=== PATIENT | female | born 1960 | race Caucasian/White ===

== ENCOUNTER 2021-09-29 01:20 | Emergency (ER) | payer OTHER ==
[2021-09-29] MEDS ORDERED: ONDANSETRON 4 MG/2 ML VIAL IVP STA (02:30)
[2021-09-29] MEDS ORDERED: SODIUM CHLORIDE 0.9% 50 ML IVPB ONE (02:45)
[2021-09-29] MEDS ORDERED: SOTROVIMAB (EUA) 500 MG in SODIUM CHLORIDE 0.9% 100 ML IVPB ONE (02:45)
--- NOTE | 2021-09-29 03:00 | ED ---
URI HPI - General Chief Complaint: Upper Respiratory Infection Stated Complaint: COVID+, wants antibodies Time Seen by Provider: 09/29/21 02:20 Source: patient, RN notes reviewed Mode of arrival: ambulatory Limitations: no limitations - History of Present Illness Initial Comments: Patient is a 61-year-old female presenting to emergency Department requesting monoclonal antibodies. Patient states he tested positive yesterday for "winded. She's been having fever, body aches, nausea over the past 4 days. She denies any chest pain or shortness of breath. She denies any abdominal pain, she does have some mild intermittent cramping. No diarrhea. Patient was seen and evaluated yesterday at [facility], received some fluids. Patient has no further complaints. Her vitals are stable upon arrival. - Related Data Previous Rx's Medication Instructions Recorded Ondansetron Odt [Zofran Odt] 4 mg PO Q8HR PRN #10 tab 09/29/21 Allergies Allergy/AdvReac Type Severity Reaction Status Date / Time amoxicillin Allergy Rash/Hives Verified 09/29/21 01:33 codeine Allergy Hallucinati Verified 09/29/21 01:33 ons diazepam [From Valium] Allergy Hallucinati Verified 09/29/21 01:33 ons Penicillins Allergy Rash/Hives Verified 09/29/21 01:33 Review of Systems ROS Statement: Those systems with pertinent positive or pertinent negative responses have been documented in the HPI. ROS Other: All systems not noted in ROS Statement are negative. Past Medical History Past Medical History: No Reported History History of Any Multi-Drug Resistant Organisms: None Reported Past Surgical History: No Surgical Hx Reported Past Psychological History: No Psychological Hx Reported Smoking Status: Never smoker Past Alcohol Use History: None Reported Past Drug Use History: None Reported General Exam - General Exam Comments Initial Comments: GENERAL: Patient is well-developed and well-nourished. Patient is nontoxic and in no acute distress. HEAD: Atraumatic, normocephalic. EYES: Pupils equal round and reactive to light, extraocular movements intact, sclera anicteric, conjunctiva are normal. Eyelids were unremarkable. ENT: Oropharynx clear without exudates. Moist mucous membranes. NECK: Normal range of motion, supple without lymphadenopathy or JVD. LUNGS: Unlabored respirations. Breath sounds clear to auscultation bilaterally and equal. No wheezes rales or rhonchi. HEART: Regular rate and rhythm without murmurs, rubs or gallops. ABDOMEN: Soft, nontender, normoactive bowel sounds. No guarding, no rebound. No masses appreciated. MUSCULOSKELETAL: Normal extremities with adequate strength and normal range of motion, no pitting or edema. No clubbing or cyanosis. NEUROLOGICAL: Patient is alert and oriented x 3. SKIN: Warm, Dry, normal turgor, no rashes or lesions noted. Limitations: no limitations Course Vital Signs 09/29/21 09/29/21 01:28 02:28 Temperature 99.2 F Pulse Rate 95 Respiratory 22 18 Rate Blood Pressure 144/83 O2 Sat by Pulse 97 Oximetry Medical Decision Making - Medical Decision Making Patient is a 61-year-old female here requesting monoclonal antibodies. She t ested positive for chlamydia yesterday. She had symptoms for about 4 days. Her vitals are stable here. Patient wasn't fully evaluated yesterday at [facility], cleaning labs, chest x-ray, no adverse findings. Patient did receive monoclonal antibodies without adverse side effects. She is stable for discharge. She will continue with Tylenol Motrin as needed for fever and chills. She can take Zofran for any additional nausea. She is agreeable to this plan of care. - Lab Data Lab Results 09/29/21 Range/Units 01:35 Coronavirus (PCR) Detected A (Not Detectd) Disposition Clinical Impression: COVID-19 Disposition: HOME SELF-CARE Condition: Stable Instructions (If sedation given, give patient instructions): Coronavirus Disease 2019 (COVID-19) Additional Instructions: Please return to the Emergency Department if symptoms worsen or any other concerns. May take Zofran for additional nausea. Recommend Tylenol Motrin for your symptoms. Follow up with your primary care. Prescriptions: Ondansetron Odt [Zofran Odt] 4 mg PO Q8HR PRN #10 tab PRN Reason: Nausea Is patient prescribed a controlled substance at d/c from ED?: No Referrals: None,Stated [Primary Care Provider] - 1-2 days Time of Disposition: 02:59
[2021-09-29 05:09] VITALS: BP 146/92; PULSE 65; RESP 20; TEMP 99.4
== END 2021-09-29 05:00 | disposition home or self-care (01) ==
LOC: EC 01:20
DX: U07.1 COVID-19 (principal); Z88.0 Allergy status to penicillin; Z88.5 Allergy status to narcotic agent; Z88.8 Allergy status to other drugs, medicaments and biological substances
CPT/HCPCS: 87635; 99283; 96374; J2405; Q0247